=== PATIENT | female | born 1990 | race Asian ===

== ENCOUNTER 2018-08-27 13:42 | Emergency (ER) | payer MEDICAID, OTHER ==
[~2018-08-27] VITALS: Ht 168.9 cm; Wt 52.2 kg
[2018-08-27 14:00] VITALS: BP 109/72
--- NOTE | 2018-08-27 14:05 | Emergency Room Report ---
History of Present Illness General Chief Complaint: Upper Respiratory Illness Source: Patient (Vinay Perea) Present Illness HPI 27-year-old female patient presents ER complaining of cough for the past 3 months. Reports cough is progressively gotten worse over the past several days. Reports cough with sputum, denies hemoptysis. Denies recent travel outside the country. Report reproducible chest pain during this time following cough. Denies calf pain. Denies history of heart disease or heart attack. Denies recent period of immobilization. States that she experiences reproducible chest pain with cough intermittently and shortness of breath. Denies history of asthma, reports history of bronchitis, states has not been using an inhaler because she does not have one. Denies shortness of breath symptoms currently in the ER. Denies other aggravating or relieving factors. States has not been taking medication other than 1 day of [id number] cough medication which she stopped because it "was not working". Reports history of smoking cigarettes. Denies fever currently, states previously had fever at initial symptom onset for 1 day "awhile ago", afebrile in ER currently. (Vinay Perea) Allergies: Coded Allergies: No Known Allergies (Unverified , 08/27/18) Patient History Past Medical History: see triage record Last Menstrual Period: 08/16/18 Reviewed Nursing Documentation: PMH: Agreed; PSxH: Agreed (Vinay Perea) Nursing Documentation-PMH Past Medical History: No Stated History (Vinay Perea) Review of Systems All Other Systems: negative except mentioned in HPI (Vinay Perea) Physical Exam Vital Signs Date Time Temp Pulse Resp B/P (MAP) Pulse Ox O2 Delivery O2 Flow Rate FiO2 08/27/18 13:47 98.1 88 18 109/72 98 Room Air Sp02 EP Interpretation: reviewed, normal General Appearance: well appearing, no apparent distress, alert, GCS 15, non- toxic Head: normocephalic, atraumatic Eyes: bilateral eye normal inspection, bilateral eye PERRL ENT: hearing grossly normal, normal pharynx, no angioedema, normal voice, TMs + canals normal, uvula midline, moist mucus membranes Neck: full range of motion, no meningismus, no bony tend Respiratory: lungs clear, normal breath sounds, no rhonchi, no respiratory distress, no accessory muscle use, no wheezing, speaking full sentences Cardiovascular #1: regular rate, rhythm, no edema Musculoskeletal: back normal, digits/nails normal, gait/station normal, normal range of motion, non-tender, no calf tenderness, Dilip's Sign negative Neurologic: alert, oriented x3, responsive, motor strength/tone normal, sensory intact Skin: no rash (Vinay Perea) Medical Decision Making PA Attestation Dr. Lomax is my supervising Physician whom patient management has been discussed with. (Vinay Perea) Diagnostic Impression: Primary Impression: Atypical pneumonia ER Course Pt presents to ED c/o cough times 3 months. DDX considered but are not limited to influenza, viral URI, pneumonia, strep throat, rhinitis, sinusitis, otitis media, otitis externa, costochondritis, NM. Denies calf pain, denies hemoptysis, no tachycardia, low suspicion for PE, does not require PE workup at this time. VITAL SIGNS are WNL, patient is afebrile. ER COURSE: EKG unremarkable, no ST elevations, low suspicion for cardiac etiology of symptoms, does not require cardiac workup at this time. Lungs clear to auscultation, no wheezes, rhonci or rales. patient afebrile. Does not require breathing treatment in the ER currently. Will provide patient with albuterol inhaler due to history of bronchitis. Chest x-ray negative for acute disease however due to duration of symptoms, will provide patient with antibiotics for atypical pneumonia. EKG and chest x-ray unremarkable, chest pain likely muscular skeletal in nature secondary to cough. Advised on taking Motrin for pain symptoms. Does not require cardiac workup at this time. Follow-up with PCP discussed referral to cardiology and need for cardiac stress testing. Advised on smoking cessation. no tonsillar exudates, no pharyngeal erythema, history of cough, no fever, no stridor, uvula midline, low suspicion for peritonsillar abscess. Likely viral etiology of symptoms. Symptomatic treatment. drink plenty of fluids. Salt water gargles for sore throat. Followup with PCP for further treatment and/or referral as needed. ER precautions given. DISCHARGE: At this time pt is stable for d/c to home. Patient is resting comfortably, in no acute distress, nontoxic appearing. Patient to take medications as instructed Will provide with patient care instructions and any necessary prescriptions. Care plan and follow-up instructions provided. Patient instructed to follow-up with primary care provider in 3 - 5 days. Patient questions asked and answered. Patient reports understanding and agreement to treatment plan. ER precautions given. Patient instructed to return to ER immediately for any new or worsening of symptoms including but not limited to increasing SOB, persistent fever, intractable vomiting. - Please note that this Emergency Department Report was dictated using [employer] technology software, occasionally this can lead to erroneous entry secondary to interpretation by the dictation equipment. (Vinay Perea) EKG Diagnostic Results Rate: normal Rhythm: NSR ST Segments: no acute changes ASA given to the pt in ED: No PA Scribe Text Eduardo Perea PA-C (Vinay Perea) Rhythm Strip Diag. Results EP Interpretation: yes Rate: 72 Rhythm: NSR, no PVC's, no ectopy PA Scribe Text Eduardo Perea PA-C (Vinay PereaAMonserrat) Chest X-Ray Diagnostic Results Chest X-Ray Diagnostic Results : Chest X-Ray Ordered: Yes # of Views/Limited/Complete: 1 View Indication: Chest Pain EP Interpretation: Yes PA Xray: Interpretation reviewed, by supervising MD, and agrees with findings. Interpretation: no consolidation, no effusion, no pneumothorax, no acute cardiopulmonary disease Impression: No acute disease PA Scribe Text Eduardo Perea PA-C (Vinay Perea) Chest X-Ray Diagnostic Results : Electronically Signed by: PA xray documentation reviewed by me and is accurate, Anup Lomax MD. (Anup Lomax MD) Last Vital Signs Date Time Temp Pulse Resp B/P (MAP) Pulse Ox O2 Delivery O2 Flow Rate FiO2 08/27/18 13:47 98.1 88 18 109/72 98 Room Air Status: improved (Vinay Perea) Disposition: HOME, SELF-CARE Condition: Stable Scripts Prednisone* (PREDNISONE*) 20 Mg Tablet 40 MG ORAL DAILY for 5 Days, #10 TAB Prov: Vinay Perea 08/27/18 Albuterol Sulfate* (ALBUTEROL SULFATE MDI*) 8.5 Gm Hfa.aer.ad 2 PUFF INH Q6H, #1 INH 0 Refills Prov: Vinay Perea 08/27/18 Azithromycin* (ZITHROMAX*) 250 Mg Tablet 250 MG ORAL DAILY, #6 TAB 0 Refills Take two tables once daily for 1 day, then one tablet once daily for 4 days. Prov: Vinay Perea 08/27/18 Acetaminophen* (TYLENOL EXTRA STRENGTH*) 500 Mg Tablet 500 MG ORAL Q8H PRN for Prn Headache/Temp > 101, #30 TAB 0 Refills Prov: Vinay Perea 08/27/18 Benzonatate* (TESSALON PERLE*) 100 Mg Capsule 100 MG ORAL THREE TIMES A DAY, #30 PERLE Prov: Vinay Perea 08/27/18 Patient Instructions: Community-Acquired Pneumonia, Adult, [id number], Upper Respiratory Infection, Adult Additional Instructions: Followup with primary care provider in 3 -5 days. Stop smoking. Take medications as directed. Patient questions asked and answered. ER precautions given, patient instructed to return to ER immediately for any new or worsening of symptoms. Vinay Perea Aug 27, 2018 14:05 Anup Lomax MD Aug 29, 2018 02:36
[2018-08-27] MEDS ORDERED: Benzonatate 100mg Perles ORAL ONE (14:15)
[2018-08-27] MEDS ORDERED: TYLENOL EXTRA500 MG ORAL (14:49)
[2018-08-27] MEDS ORDERED: ZITHROMAX250 MG ORAL (14:49)
[2018-08-27] MEDS ORDERED: TESSALON PERLE100 MG ORAL (14:49)
[2018-08-27] MEDS ORDERED: ALBUTEROL SULF8.5 GM INH (14:49)
[2018-08-27] MEDS ORDERED: PREDNISONE20 MG ORAL (14:50)
[2018-08-27 15:00] VITALS: BP 134/91
--- NOTE | 2018-08-27 15:04 | Diagnostic Imaging Report ---
Indication: Cough Technique: One view of the chest Comparison: none Findings: Lungs and pleural spaces are clear. Heart size is normal. There is minimal upper thoracic scoliotic deformity, may be an artifact of positioning Impression: No acute process
== END 2018-08-27 15:00 | disposition home or self-care (01) ==
LOC: EMR 14:22
DX: J18.9 Pneumonia, unspecified organism (principal)
CPT/HCPCS: 71045; 93005; 99283

== ENCOUNTER 2018-09-04 17:02 | Emergency (ER) | payer OTHER ==
[~2018-09-04] VITALS: Ht 167.6 cm; Wt 52.2 kg
[~2018-09-04 17:02] MED LIST: ALBUTEROL SULF8.5 GM INH; PREDNISONE20 MG ORAL; TESSALON PERLE100 MG ORAL; TYLENOL EXTRA500 MG ORAL; ZITHROMAX250 MG ORAL
[2018-09-04] MEDS ORDERED: CYRED 28 DAY T1 EACH PO (17:20)
--- NOTE | 2018-09-04 17:20 | NUR ---
ED Nurse Note: Patient brought in by ambulance from work patient c/o having black out, no trauma or fall. accu check on scene was 95mg/dl alert and awake x4, patient is ambulatory, patient states she takes prescribed medication for anxiety.
[2018-09-04 18:23] LABS: BASOPHILS % (AUTO) 1.3 % (0.0-2.0); EOSINOPHILS % (AUTO) 1.9 % (0.0-3.0); HEMATOCRIT 45.8 % (37.0-47.0); HEMOGLOBIN 14.9 G/DL (12.0-16.0); LYMPHOCYTES % (AUTO) 24.8 % (20.0-45.0); MEAN CORPUSCULAR VOLUME 85 FL (80-99); MONOCYTES % (AUTO) 3.8 % (1.0-10.0); NEUTROPHILS % (AUTO) 68.2 % (45.0-75.0); PLATELET COUNT 363 K/UL (150-450); RED BLOOD COUNT 5.39 M/UL (4.20-5.40); WHITE BLOOD COUNT 10.5 K/UL (4.8-10.8)
[2018-09-04 18:29] LABS: APPEARANCE,URINE CLEAR; BILIRUBIN, URINE NEGATIVE (NEGATIVE); COLOR,URINE AMBER; GLUCOSE, URINE (UA) NEGATIVE (NEGATIVE); KETONES,URINE 1+ (NEGATIVE); LEUKOCYTE ESTERASE ,URINE 1+ (NEGATIVE); NITRITE,URINE NEGATIVE (NEGATIVE); PH,URINE 6 (4.5-8.0); PROTEIN,URINE 1+ (NEGATIVE); UROBILINOGEN,URINE NORMAL MG/DL (0.0-1.0)
[2018-09-04 18:36] LABS: ANION GAP 12 mmol/L (5-15); BLOOD UREA NITROGEN 12 mg/dL (7-18); CALCIUM 9.4 MG/DL (8.5-10.1); CARBON DIOXIDE 26 MMOL/L (21-32); CHLORIDE 102 MMOL/L (98-107); CREATININE 0.9 MG/DL (0.55-1.30); POTASSIUM 3.8 MMOL/L (3.5-5.1); SODIUM 140 MMOL/L (136-145)
[2018-09-04 18:41] LABS: ALANINE AMINOTRANSFERASE 23 U/L (12-78); ALBUMIN 4.3 G/DL (3.4-5.0); ALKALINE PHOSPHATASE 57 U/L (46-116); ASPARTATE AMINO TRANSFERASE 15 U/L (15-37); BILIRUBIN,TOTAL 0.2 MG/DL (0.2-1.0)
--- NOTE | 2018-09-04 18:51 | Diagnostic Imaging Report ---
EXAM: XR Chest, 1 View CLINICAL HISTORY: SYNCOPE TECHNIQUE: Frontal view of the chest. COMPARISON: 08/27/18. FINDINGS: Lungs: Unremarkable. No consolidation. Pleural space: Unremarkable. No pneumothorax. Heart: Unremarkable. No cardiomegaly. Mediastinum: Unremarkable. Bones/joints: Thoracolumbar dextrocurvature. IMPRESSION: No evidence of acute pulmonary disease.
[2018-09-04] MEDS ORDERED: LORazepam 1mg tab ORAL ONE (19:00)
--- NOTE | 2018-09-04 19:13 | NUR ---
ER DISCHARGE NOTE: Patient is cleared to be discharged per ERMD, pt is aox4, on room air, with stable vital signs. pt was given dc and prescription instructions, pt was able to verbalize understanding, pt id band and iv site removed without complications. pt is able to ambulate with steady gait. pt took all belongings.
[2018-09-04 19:16] VITALS: BP 117/74
--- NOTE | 2018-09-04 22:40 | Emergency Room Report ---
History of Present Illness General Chief Complaint: Syncope Source: Patient Present Illness HPI 27-year-old female presents ED for evaluation. Brought in by EMS status post syncopal episode today. 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 Denies LOC. Denies hitting her head. Upon arrival patient is anxious and crying. States she feels stressed because of the episode. History of anxiety. Denies chest pain or shortness of breath. Denies drug use. No other aggravating relieving factors. Denies any other associated symptoms Allergies: Coded Allergies: No Known Allergies (Unverified , 08/27/18) Patient History Past Medical History: none Past Surgical History: none Pertinent Family History: none Social History: Denies: smoking, alcohol use, drug use Last Menstrual Period: 2 weeks ago- taking control pill Now: No Immunizations: UTD Reviewed Nursing Documentation: PMH: Agreed; PSxH: Agreed Nursing Documentation-PMH Past Medical History: No History, Except For Review of Systems All Other Systems: negative except mentioned in HPI Physical Exam Vital Signs Date Time Temp Pulse Resp B/P (MAP) Pulse Ox O2 Delivery O2 Flow Rate FiO2 09/04/18 17:15 98.8 85 14 110/73 95 Room Air Sp02 EP Interpretation: reviewed, normal General Appearance: no apparent distress, alert, GCS 15, non-toxic Head: normocephalic, atraumatic Eyes: bilateral eye normal inspection, bilateral eye PERRL ENT: hearing grossly normal, normal pharynx, no angioedema, normal voice Neck: full range of motion, supple/symm/no masses Respiratory: chest non-tender, lungs clear, normal breath sounds, speaking full sentences Cardiovascular #1: regular rate, rhythm, no edema Cardiovascular #2: 2+ carotid (R), 2+ carotid (L), 2+ radial (R), 2+ radial (L) , 2+ dorsalis pedis (R), 2+ dorsalis pedis (L) Gastrointestinal: normal bowel sounds, non tender, soft, non-distended, no guarding, no rebound Rectal: deferred Genitourinary: normal inspection, no CVA tenderness Musculoskeletal: back normal, gait/station normal, normal range of motion, non- tender Neurologic: alert, oriented x3, responsive, motor strength/tone normal, sensory intact, speech normal Psychiatric: judgement/insight normal, memory normal, anxious Reflexes: 3+ bicep (R), 3+ bicep (L), 3+ tricep (R), 3+ tricep (L), 3+ knee (R) , 3+ knee (L) Skin: normal color, no rash, warm/dry, well hydrated Lymphatic: no adenopathy Medical Decision Making Diagnostic Impression: Primary Impression: Syncope Qualified Codes: R55 - Syncope and collapse Additional Impression: Anxiety ER Course Hospital Course 27-year-old female presents ED s/p syncopal episode. Differential diagnoses include: arrythmia, dehydration, anxiety Clinical course Patient placed on stretcher. on cardiac nurse specialist. After initial history and physical I ordered labs, EKG, chest Xray, IVFs labs reviewed- no leukocytosis, Hb/Hct stable, electrolytes ok, Chest x-ray- no acute process EKG - NSR, no acute ischemic changes interpreted by me Discussed findings with patient. Reassurance given. Per SF syncope rules patient can be safely discharged to home. Likely anxiety and treating to symptoms today. Patient is tearful. Denies SI or HI. Given Ativan here. Is asking for outpatient mental health referrals. We'll also provide PMD referrals. Safe for discharge or close outpatient follow-up I. I feel this is a highly complex case requiring extensive working including EKG/Rhythm strip, Xray/CT/US, Blood/urine lab work, repeat exams while in ED, and administration of strong opiates/narcotics for pain control, admission to hospital or close patient follow up. Diagnosis - syncope, anxiety Stable and discharged to home. Followup with PMD. Return to ED if symptoms recur or worsen Labs Test 09/04/18 18:04 09/04/18 18:10 Urine Color Marianne Urine Appearance Clear Urine pH 6 (4.5-8.0) Urine Specific Alexander 1.020 (1.005-1.035) Urine Protein 1+ (NEGATIVE) Urine Glucose (UA) Negative (NEGATIVE) Urine Ketones 1+ (NEGATIVE) Urine Blood Negative (NEGATIVE) Urine Nitrite Negative (NEGATIVE) Urine Bilirubin Negative (NEGATIVE) Urine Ictotest Negative (NEGATIVE) Urine Urobilinogen Normal MG/DL (0.0-1.0) Urine Leukocyte Esterase 1+ (NEGATIVE) Urine RBC 0-2 /HPF (0 - 2) Urine WBC 5-10 /HPF (0 - 2) Urine Squamous Epithelial Cells Moderate /LPF (NONE/OCC) Urine Bacteria Few /HPF (NONE) Urine HCG, Qualitative Negative (NEGATIVE) Urine Opiates Screen Negative (NEGATIVE) Urine Barbiturates Screen Negative (NEGATIVE) Phencyclidine (PCP) Screen Negative (NEGATIVE) Urine Amphetamines Screen Negative (NEGATIVE) Urine Benzodiazepines Screen Negative (NEGATIVE) Urine Cocaine Screen Negative (NEGATIVE) Urine Marijuana (THC) Screen Negative (NEGATIVE) White Blood Count 10.5 K/UL (4.8-10.8) Red Blood Count 5.39 M/UL (4.20-5.40) Hemoglobin 14.9 G/DL (12.0-16.0) Hematocrit 45.8 % (37.0-47.0) Mean Corpuscular Volume 85 FL (80-99) Mean Corpuscular Hemoglobin 27.6 PG (27.0-31.0) Mean Corpuscular Hemoglobin Concent 32.5 G/DL (32.0-36.0) Red Cell Distribution Width 12.0 % (11.6-14.8) Platelet Count 363 K/UL (150-450) Mean Platelet Volume 5.0 FL (6.5-10.1) Neutrophils (%) (Auto) 68.2 % (45.0-75.0) Lymphocytes (%) (Auto) 24.8 % (20.0-45.0) Monocytes (%) (Auto) 3.8 % (1.0-10.0) Eosinophils (%) (Auto) 1.9 % (0.0-3.0) Basophils (%) (Auto) 1.3 % (0.0-2.0) Sodium Level 140 MMOL/L (136-145) Potassium Level 3.8 MMOL/L (3.5-5.1) Chloride Level 102 MMOL/L (98-107) Carbon Dioxide Level 26 MMOL/L (21-32) Anion Gap 12 mmol/L (5-15) Blood Urea Nitrogen 12 mg/dL (7-18) Creatinine 0.9 MG/DL (0.55-1.30) Estimat Glomerular Filtration Rate > 60 mL/min (>60) Glucose Level 94 MG/DL (74-106) Calcium Level 9.4 MG/DL (8.5-10.1) Total Bilirubin 0.2 MG/DL (0.2-1.0) Aspartate Amino Transf (AST/SGOT) 15 U/L (15-37) Alanine Aminotransferase (ALT/SGPT) 23 U/L (12-78) Alkaline Phosphatase 57 U/L (46-116) Total Protein 8.6 G/DL (6.4-8.2) Albumin 4.3 G/DL (3.4-5.0) Globulin 4.3 g/dL Albumin/Globulin Ratio 1.0 (1.0-2.7) EKG Diagnostic Results Rate: normal Rhythm: NSR ST Segments: no acute changes ASA given to the pt in ED: No Rhythm Strip Diag. Results EP Interpretation: yes Rhythm: NSR, no PVC's Chest X-Ray Diagnostic Results Chest X-Ray Diagnostic Results : Chest X-Ray Ordered: Yes # of Views/Limited/Complete: 1 View Indication: Other - syncope EP Interpretation: Yes Interpretation: no consolidation, no effusion, no pneumothorax, no acute cardiopulmonary disease Impression: No acute disease Electronically Signed by: Electronically signed by Keegan Roman MD Last Vital Signs Date Time Temp Pulse Resp B/P (MAP) Pulse Ox O2 Delivery O2 Flow Rate FiO2 09/04/18 19:16 98.8 70 11 117/74 99 Room Air Status: improved Disposition: HOME, SELF-CARE Condition: Stable Referrals: PREFERRED IPA,REFERRING (PCP) [facility] Yanci Brown Comp. [facility] + [facility] Psych ER - Peds ER - [facility] Intake Hotline - Patient Instructions: Syncope Keegan Roman MD Sep 04, 2018 22:40
== END 2018-09-04 18:14 | disposition home or self-care (01) ==
LOC: EDBD 17:02 → EMR 17:50
DX: R55 Syncope and collapse (principal); F41.9 Anxiety disorder, unspecified
CPT/HCPCS: 36415; 71045; 80053; 80307; 81003; 81025; 85025; 93005; 99284